=== PATIENT | male | born 1980 | race Hispanic/Latino ===

== ENCOUNTER 2019-12-05 08:44 | Emergency (ER) | payer SELFPAY ==
--- NOTE | ~2019-12-05 | XR_ITS ---
EXAMINATION: XR wrist RT min 3V DATE: 12/05/2019 09:05 INDICATION: Carpal pain at the right wrist post injury with abnormal bending TECHNIQUE: Posteroanterior, ulnar deviation, oblique, and lateral views of the right wrist were obtai cindy. COMPARISON: none FINDINGS: Alignment is normal. Old healed fracture deformity at the second metacarpal diaphysis. No acute fract ure. Joint spaces are normal. Soft tissues are unremarkable. IMPRESSION: 1. No acute osseous abnormality. Reviewed, dictated and finalized at location A.
[2019-12-05 08:50] VITALS: BP 126/65; PULSE 66; RESP 15; TEMP 36.8; O2SAT 99
--- NOTE | 2019-12-05 09:10 | ED.UPPEXIN ---
HPI - Extremity Injury (Upper) General Chief Complaint: Extremity Injury, Upper Stated Complaint: hand injury Time Seen by Provider: 12/05/19 09:04 History of Present Illness HPI narrative: Patient presents for right wrist pain. In August he caught a door falling out of a dumpster with his right hand, causing it to hyperextend. It hurt in the wrist done but he thought it would get better. 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 He has no pain now. He is right-handed. He has no chronic medical problems. His had no surgeries. He does not smoke. He does drink alcohol and smoke marijuana. He has no prescription medicine. complaint: injury to: right Onset (ago): month(s) Other Extremity Injury: Right: wrist Other injuries: none Handedness: right Place: work Severity: moderate Exacerbating factors: other (Extension at the wrist.) Context: other (Hyperextension at work.) Related Data Home Medications Medication Instructions Recorded Confirmed No Home Medications 12/05/19 12/05/19 Allergies Allergy/AdvReac Type Severity Reaction Status Date / Time No Known Allergies Allergy Unverified 12/05/19 08:54 Review of Systems Review of Systems: Narrative: CONSTITUTIONAL: Denies fever, chills, or sweats. EYES: Denies visual changes, redness, or discharge. ENT: Denies rhinorrhea, congestion, sore throat, or otalgia. CARDIOVASCULAR: Denies chest pain, palpitations, or edema. RESPIRATORY: Denies cough or dyspnea. GASTROINTESTINAL: Denies abdominal pain, nausea, vomiting, or diarrhea. GENITOURINARY: Denies dysuria or hematuria. SKIN: Denies rash or itching. MUSCULOSKELETAL: Denies back pain, or myalgia. He only complains of the right wrist pain. NEUROLOGIC: Denies headache, numbness, or weakness. PSYCHIATRIC: Denies anxiety or depression. FOR[facility]LY [facility] Surgical History Surgical History (Updated 12/05/19 @ 09:13 by Jannet Tee MD) No pertinent past surgical history Social History Social History (Updated 12/05/19 @ 09:13 by Jannet Tee MD) Smoking status: Never smoker Alcohol intake: current Substance use: current Substance use type: marijuana Gender identity (if verbalized by the patient): Male Exam Narrative: Exam Narrative: GENERAL: Well-appearing, well-nourished, and in no acute distress. HEAD: Normocephalic, atraumatic. EYES: PERRLA and EOMI. ENT: Nares clear, no rhinorrhea or epistaxis. Mucous membranes moist. NECK: Supple. CHEST: Clear to auscultation. No respiratory distress. HEART: Regular rate and rhythm. No murmur heard. Normal peripheral pulses. ABDOMEN: Soft, nontender, nondistended, normal active bowel sounds. EXTREMITIES: Slight crepitance at the right wrist with extension. no edema. SKIN: Warm, dry, no rash. NEURO: No focal deficits. Alert and oriented x3. PSYCH: Normal mood and affect. Course Reevaluation(s) Reevaluation #1: Went in to tell the patient that he had broken his wrist with the initial injury, and that it has healed on the x-ray. I offered an appointment with either orthopedics or plastic surgery to see if there is something they can do to help with the pain. He accepts. He does not think he needs an Cristian bandage. Date: 12/05/19 Time: 10:07 Vital Signs Vital signs: Vital Signs Temperature 98.2 F 12/05/19 08:50 Pulse Rate 66 12/05/19 08:50 Respiratory Rate 15 12/05/19 08:50 Blood Pressure 126/65 12/05/19 08:50 Pulse Oximetry 99 12/05/19 08:50 Temperature 98.2 F 12/05/19 08:50 Pulse Rate 66 12/05/19 08:50 Respiratory Rate 15 12/05/19 08:50 Blood Pressure 126/65 12/05/19 08:50 Pulse Oximetry 99 12/05/19 08:50 MDM - Extremity Injury (Upper) Differential Diagnosis Differential diagnosis: Likely sprain and strain of wrist and fracture of wrist Medical Records Attestation: I reviewed the patient's medical records. Discharge Plan Discha
[2019-12-05 10:15] VITALS: BP 116/57; PULSE 78; RESP 16; O2SAT 100
== END 2019-12-05 10:15 | disposition home or self-care (01) ==
PROVIDERS: Emergency Provider Emergency Medicine
DX: S63.501A Unspecified sprain of right wrist, initial encounter (principal); X50.9XXA Other and unspecified overexertion or strenuous movements or postures, initial encounter
CPT/HCPCS: 73110; 99283

== ENCOUNTER 2020-08-31 08:42 | Emergency (ER) | payer SELFPAY ==
--- NOTE | ~2020-08-31 | CT_ITS ---
EXAMINATION: CT abdomen pelvis wo/w con EXAM DATE: 08/31/2020 11:41 INDICATION: Hematuria. TECHNIQUE: Spiral CT of the abdomen and pelvis was performed without contrast. The patient was then injected with small bolus intravenous Omnipaque 350, followed by delay of approximately 10 minutes to allow collecting system to opacify. A post contrast scan abdomen and pelvis was performed during inj ection of remaining contrast. A total of 130 cc intravenous contrast was administered. The dose-nolan th product (DLP) for this examination was 496.88 mGy-cm. The exposure was tailored according to yeny ent size (auto mA exposure control), and iterative reconstruction (ASIR) was used as additional dose reduction technique. Comparison is made to prior examination from 03/01/2019. FINDINGS: There is a 2 mm right mid calyceal stone. Several other punctate right calyceal stones like ly. No ureteral stones or hydronephrosis. The kidneys enhance symmetrically. There are no suspiciou s renal lesions. The calyces and opacified portions of ureters are unremarkable, without filling def ects or focal suspicious strictures. The bladder is unremarkable. The prostate is unremarkable. The liver, spleen, adrenal glands and pancreas are unremarkable. Gallbladder adenomyomatosis. No jacquie cified cholelithiasis. There is no retroperitoneal or pelvic lymphadenopathy. The appendix is normal. The stomach and small bowel are unremarkable. Mild chronic prominence, thick ening of the sigmoid colonic wall for approximately 15 cm segment, could be from underdistention. Ashtyn nocarcinoma is typically much more focal. There is expected amount of colonic stool. No free intrap eritoneal gas. The heart is normal in size. There are no pericardial or pleural effusions. The nadeem ng bases are unremarkable. The bones are unremarkable. IMPRESSION: 1. Punctate right nephrolithiasis. 2. Mild chronic prominence, thickening of the sigmoid colonic wall, most likely be from underdistenti on. Adenocarcinoma is typically much more focal. Reviewed, dictated and finalized at location A. FIC DIRECTOR IMPRESSION: 1. Punctate right nephrolithiasis. 2. Mild chronic prominence, thickening of the sigmoid colonic wall, most likely be from underdistention. Adenocarcinoma is typically much more focal.
[2020-08-31 09:07] VITALS: BP 122/76; PULSE 78; RESP 16; TEMP 36.7; O2SAT 98
[2020-08-31 09:40] LABS: Add Urine Microscopic? YES; Appearance Urine Cloudy (Clear); Bilirubin Urine Negative (Negative); Blood Urine 3+ (Negative); Color Urine Straw (Yellow); Glucose Urine UA Negative (Negative); Ketones Urine Negative (Negative); Leukocyte Esterase Ur Negative LEU/UL (Negative); Mucus Urine Rare /lpf; Nitrate Urine Negative (Negative); Protein Urine 1+ mg/dL (Negative); RBC Urine >75 /hpf (0-2); Urobilinogen Urine Negative mg/dL (<2.0)
--- NOTE | 2020-08-31 10:30 | ED.MALEGU ---
HPI - Male Genitourinary General Chief complaint: Urogenital-Male Stated complaint: blood in urine Time Seen by Provider: 08/31/20 08:57 Source: patient Mode of arrival: ambulatory Limitations: no limitations History of Present Illness HPI Narrative: 40-year-old male Reports no past medical history 1 day history of noticing blood in his urine He does not have any pain and has no dysuria No history of any traumatic injury No prior history of any urinary issues no kidney stones Denies fever back pain dysuria nausea etc. Related Data Allergies Allergy/AdvReac Type Severity Reaction Status Date / Time No Known Allergies Allergy Verified 08/31/20 09:12 Review of Systems Review of Systems: All systems reviewed & are unremarkable except as noted in HPI and below Constitutional: Constitutional: Denies fever(s) and Denies headache(s) ENT: Denies headache(s) Cardiovascular: Cardiovascular: Denies leg edema, Denies palpitations and Denies dyspnea Gastrointestinal: Gastrointestinal: Denies abdominal pain, Denies constipation, Denies diarrhea, Denies nausea and Denies vomiting Genitourinary: Genitourinary: Reports as per HPI, Reports hematuria, Denies oliguria, Denies dysuria and Denies urinary frequency Musculoskeletal: Musculoskeletal: Denies back pain, Denies deformity, Denies muscle weakness and Denies numbness Integumentary/Breasts: Skin/Breast: Denies rash and Denies wounds Psychiatric: Psychiatric: Reports no additional psychiatric complaints Endocrine: Endocrine: Denies palpitations PMFSH Surgical History Surgical History No pertinent past surgical history Social History Social History Smoking status: Never smoker Alcohol intake: current Substance use: current Substance use type: marijuana Gender identity (if verbalized by the patient): Male Exam Const: General: no acute distress, well developed, alert and awake Nutritional Appearance: well nourished Orientation/consciousness: patient oriented x3 (alert) Limitations: no limitations HENMT: Head: normal to inspection, normocephalic and atraumatic Ears: external ears normal General nose exam: No nasal discharge present Face and sinus: face symmetric Eyes: Conjunctivae: conjunctivae normal Sclera: sclerae normal EOM: EOMs intact bilaterally Neck: Neck: normal visual inspection, supple and no JVD Chest: Chest palpation & inspection: deferred Resp: Effort & Inspection: normal respiratory effort and not labored Auscultation: other (BS =) Cardio: Heart sounds: no gallops GI: Inspection: normal to inspection GI Palp: Yes Soft to palpation, No Tenderness to palpation present (GI), No Guarding due to palpation present (GI) and No Rebound tenderness present : General: Yes no CVA tenderness Back/Spine/Pelvis: Thoracic/Lumbar Spine: thoracic and lumbar spine normal to inspection Skin: General skin exam: normal color and no rashes or lesions noted Neuro: General: patient oriented x3 (alert) and moves all extremities Cranial nerves: Yes facial symmetry Speech: normal speech Extrem: General: full ROM Psych: Affect: normal affect Course Course Emergency Course: Discussed with Dr. Doe, will get a CT urogram, and then he can follow-up in the office Vital Signs Vital signs: Vital Signs Temperature 36.7 C 08/31/20 09:07 Pulse Rate 78 08/31/20 09:07 Respiratory Rate 16 08/31/20 09:07 Blood Pressure 122/76 08/31/20 09:07 Pulse Oximetry 98 08/31/20 09:07 Temperature 36.7 C 08/31/20 09:07 Pulse Rate 78 08/31/20 09:07 Respiratory Rate 16 08/31/20 09:07 Blood Pressure 122/76 08/31/20 09:07 Pulse Oximetry 98 08/31/20 09:07 MDM - Male Genitourinary Lab Data Result diagrams: 08/31/20 11:21 Labs: Lab Results 08/31/20 08/31/20 Range/Units 09:14 11:21 Creatinin
[2020-08-31 11:22] LABS: Estimated CRCL calculation 99 ml/min; Estimated Glomerular Filt Rate > 60
[2020-08-31 12:22] VITALS: BP 123/75; PULSE 69; RESP 16; O2SAT 98
== END 2020-08-31 12:21 | disposition home or self-care (01) ==
PROVIDERS: Emergency Provider Emergency Medicine
DX: R31.9 Hematuria, unspecified (principal); N20.0 Calculus of kidney; R93.3 Abnormal findings on diagnostic imaging of other parts of digestive tract
CPT/HCPCS: 74178; 81001; 87086; 99284; Q9967

== ENCOUNTER 2020-09-22 21:01 | Emergency (ER) | payer SELFPAY ==
--- NOTE | ~2020-09-22 | XR_ITS ---
EXAMINATION: XR hand RT min 3V DATE: 09/22/2020 21:59 INDICATION: Right hand injury. TECHNIQUE: 5 views of right hand were obtained. COMPARISON: Right wrist radiographs 12/05/2019 FINDINGS: There is old healed fracture of diaphysis of second metacarpal. There is an oblique fractur e of midshaft of fifth metacarpal. The distal fracture fragment demonstrates 44 degrees palmar angula tion. Joint spaces are normal. IMPRESSION: 1. Oblique fracture of diaphysis of fifth metacarpal. Reviewed, dictated and finalized at location A.
[2020-09-22 21:24] VITALS: BP 119/78; PULSE 71; RESP 16; TEMP 36.6; O2SAT 98
[2020-09-23 00:12] VITALS: BP 128/74; PULSE 72; RESP 16; TEMP 37; O2SAT 95
--- NOTE | 2020-09-23 00:13 | ED.UPPEXIN ---
HPI - Extremity Injury (Upper) General Chief Complaint: Extremity Injury, Upper Stated Complaint: right hand injury Time Seen by Provider: 09/23/20 00:10 Source: patient Mode of arrival: ambulatory Limitations: no limitations History of Present Illness HPI narrative: 40-year-old with no major medical problems here with complaints of injury to the right hand. Patient states that accidentally the downstairs leg fell on his hand at work this afternoon. Complains of swelling and pain. MD complaint: injury to: right and hand Other Extremity Injury: Right: hand Other injuries: none Handedness: right Place: work Severity: moderate Relieving factors: cold therapy and immobilization Context: direct blow Related Data Allergies Allergy/AdvReac Type Severity Reaction Status Date / Time No Known Allergies Allergy Verified 09/22/20 21:02 Review of Systems Review of Systems: All systems reviewed & are unremarkable except as noted in HPI and below Constitutional: Constitutional: Reports no additional constitutional complaints Eyes: Eyes: Reports no additional eye complaints ENT: Reports system reviewed and no additional complaints, except as documented Cardiovascular: Cardiovascular: Reports no additional cardiovascular complaints Respiratory: Respiratory: Reports no additional respiratory complaints Musculoskeletal: Musculoskeletal: Reports as per HPI [facility] Surgical History Surgical History No pertinent past surgical history Social History Social History Smoking status: Never smoker Alcohol intake: current Substance use: current Substance use type: marijuana Gender identity (if verbalized by the patient): Male Exam Narrative: Exam Narrative: GENERAL: Well-appearing, well-nourished, and in no acute distress. HEAD: Normocephalic, atraumatic. EYES: PERRLA and EOMI. NECK: Supple. CHEST: Clear to auscultation. No respiratory distress. HEART: Regular rate and rhythm. No murmur heard. Normal peripheral pulses. EXTREMITIES: Normal range of motion. Moderate STS of dorsum of the right hand and few abrasions. SKIN: Warm, dry, no rash. NEURO: No focal deficits. Alert and oriented x3. PSYCH: Normal mood and affect. Course Course Emergency Course: Inform patient about his x-ray findings will apply splint, advised him to follow-up with orthopedic or hand and plastic surgeon. Vital Signs Vital signs: Vital Signs Temperature 36.6 C 03/29/21 21:24 Pulse Rate 71 09/22/20 21:24 Respiratory Rate 16 09/22/20 21:24 Blood Pressure 119/78 09/22/20 21:24 Pulse Oximetry 98 09/22/20 21:24 Temperature 36.6 C 09/22/20 21:24 Pulse Rate 71 09/22/20 21:24 Respiratory Rate 16 09/22/20 21:24 Blood Pressure 119/78 09/22/20 21:24 Pulse Oximetry 98 09/22/20 21:24 MDM - Extremity Injury (Upper) Imaging Data Radiologist's impression: ITS Impressions Hand X-Ray 09/22/20 22:00 IMPRESSION: 1. Oblique fracture of diaphysis of fifth metacarpal. Discharge Plan Discharge Clinical Impression: Fracture, metacarpal shaft Patient Disposition: Home, Self-Care Condition: Stable Instructions: Antibiotic Form, Hand Fracture (ED) Additional Instructions: Keep your hand elevated take pain medication as needed Prescriptions: New tramadol 50 mg tablet 50 mg PO Q6H PRN (Reason: pain) Qty: 20 RF: 0 No Action ciprofloxacin HCl [Cipro] 250 mg tablet 250 mg PO Q12H Qty: 14 RF: 0 Follow-up/Referrals: PHYSICIAN,FINAL INSPECTOR PAPER [Primary Care Provider] - Time of Disposition: 00:21
--- NOTE | 2020-10-03 05:06 | PC.NURSE ---
LATE ENTRY This note is being entered to document information to the patient's record. The following information was omitted on [09/22/20], VO short arm splint to be applied to the right arm, Splint applied positive distal pulses by [Alli NGUYEN].
== END 2020-09-23 00:39 | disposition home or self-care (01) ==
PROVIDERS: Emergency Provider Family Medicine
DX: S62.326A Displaced fracture of shaft of fifth metacarpal bone, right hand, initial encounter for closed fracture (principal); W20.8XXA Other cause of strike by thrown, projected or falling object, initial encounter
CPT/HCPCS: 29125; 73130; 99284

== ENCOUNTER → 2020-09-29 00:17 | Outpatient (CLI) | payer SELFPAY ==
[2020-09-29 19:29] LABS: SARS-CoV-2 RNA PCR Negative
== END ==
PROVIDERS: Visit Provider Plastic Surgery
DX: Z01.812 Encounter for preprocedural laboratory examination (principal); Z20.822 Contact with and (suspected) exposure to COVID-19
CPT/HCPCS: C9803; U0003; U0005

== ENCOUNTER 2020-10-02 01:54 | Day surgery (SDC) | payer OTHER, SELFPAY ==
[2020-09-23 14:53] VITALS: BMI 22.6
[2020-10-02] VITALS (8 sets, daily range): BP systolic 113–135; BP diastolic 68–89; PULSE 51–60; RESP 14–16; TEMP 37.3; O2SAT 99–100
--- NOTE | ~2020-10-02 | XR_ITS ---
EXAMINATION: XR surgery orthopedic DATE: 10/02/2020 12:42 INDICATION: Reduction and fixation of a right fifth metacarpal fracture. TECHNIQUE: 3 fluoroscopic images of the right hand were obtained during procedure performed by Dr. Knapp. Radiologist was not present for the imaging or procedure. The amount of fluoroscopy time used du ring this procedure was 0.7 minutes. COMPARISON: 09/22/2020 FINDINGS: Interval reduction and likely percutaneously placed wire fixation spanning an oblique mid diaphyseal fracture of the right fifth metacarpal which is now in near-anatomic alignment with only one cortical width palmar/radial displacement and negligible residual palmar angulation. Additional old healed fr acture deformity at the second metacarpal diaphysis. No other fractures identified. Joint spaces are normal. IMPRESSION: 1. Reduction and wire fixation of a mid diaphyseal fracture of the right fifth metacarpal which is no w in near-anatomic limited. See procedure note for further detail. Reviewed, dictated and finalized at location B. IMPRESSION: 1. Reduction and wire fixation of a mid diaphyseal fracture of the right fifth metacarpal which is now in near-anatomic limited. See procedure note for furthe r detail.
--- NOTE | 2020-10-02 07:21 | WPDHPUPDATE1 ---
History and Physical Update Update Date/Time: 10/02/20 07:21 History and Physical has been reviewed, including an updated exam of the patient. There are NO changes in the patient's condition. Risks, benefits, and alternatives have been discussed and questions answered. Patient agrees to proceed with procedure.
[2020-10-02] MEDS: LACTATED RINGERS 1,000 ML 30 ML IV CONT (11:31)
--- NOTE | 2020-10-02 11:32 | WPDANESEPPF ---
Anes - Initial Pre Proc Eval Procedure: Operation Date: 10/02/20 12:45 Proposed Procedures p Closed, Possible Open Reduction Of Right Fifth Metacarpal Shaft Fracture With Intramedullary Varinder Fixation - Randy Garcia MD Date/Time: 10/02/20 11:32 Surgeon: Randy Garcia MD Pre Op Diagnosis: Right fifth metacarpal fracture Patient Data Age: 40 Gender: M Height: 5 ft 7 in Weight: 65.7 kg Allergies Allergy/AdvReac Type Severity Reaction Status Date / Time No Known Allergies Allergy Verified 10/02/20 11:04 Home Medications Medication Instructions Recorded Confirmed Type tramadol 50 mg PO Q6H PRN #20 tablet 09/23/20 09/23/20 Rx Patient hx anesthesia problems: none Family hx anesthesia problems: none PMFSH Surgical History Surgical History No pertinent past surgical history Social History Social History Years smoked: 2 Smoking status: Never smoker Tobacco type: cigarettes Smoking end date: 06/27/08 Alcohol intake: current Drinks per week: 3 Substance use: current Substance use type: marijuana Living arrangements: with family Gender identity (if verbalized by the patient): Male Spiritual care concerns: No Anes - Eval Final PreProcedure Day of Procedure 10/02/20 11:32 Patient weight: normal Heart: regular rate and rhythm Lungs: clear to auscultation Airway: Mallampati scale class II Neurological: alert and oriented Last oral intake: >/= 8 hours ASA classification: II Emergent: no Anesthetic plan: proceed Anesthesia type and monitoring: general LMA and standard monitoring Informed Consent: The patient's anesthetic plan and its attendant risks and benefits were discussed with the patient/family/POA. Questions were solicited and answers provided to the satisfaction of the patient/family/POA.
[2020-10-02] MEDS: ceFAZolin 2 GM/D5W 50 ML 2 GM/50 ML BAG IVPB (11:47)
[2020-10-02] MEDS: LIDO 1%/EPINEPHRINE 1:100,000 50 ML VIAL INFILTRATE (12:30)
--- NOTE | 2020-10-02 12:55 | P.OPB_ITS ---
Procedure Note - Brief Procedure Note - Brief Date of procedure: 10/02/20 Pre-op diagnosis: Right fifth metacarpal fracture Post-op diagnosis: same Procedure performed: Closed reduction and internal BioMet fixation device. Anesthesia: GLMA Surgeon: Randy Garcia MD Electronic Systems Technician: Fco Estimated blood loss (mL): 0 Drains: No Packing: No Pathology: none sent Complications: No immediate complications Condition: stable Disposition: PACU
--- NOTE | 2020-10-02 12:57 | PM.PROC ---
Procedure Note - Detailed Date of procedure: 10/02/20 Pre-op diagnosis: Right fifth metacarpal fracture Post-op diagnosis: same Procedure performed: Closed reduction and application of internal Biomet fixation device Description of procedure: The hand was marked in the holding area. The patient was taken to the operating room and placed supine on the operating table. A time-out was held and confirmed. He was given general endotracheal anesthesia. The extremity was prepped and draped in usual fashion. The site for access of the fixation device was identified with FluoroScan. The site was infiltrated with 1% lidocaine with epinephrine the also infiltrated was the fracture site. The tourniquet was inflated to 250 mmHg. The incision was made as indicated at the base of the metacarpal. The introducer was positioned. The fenestration through the cortex and positioning of the 1.6 mm karla was imaged. With fluoroscopic control the intramedullary karla was advanced across the fracture line and into the head of the metacarpal. The closed reduction was carried out as that was performed. Satisfactory reduction was accomplished. The karla was cut and bent and the sleeve applied. It was cut once again and the cap applied and the skin wound closed over the cap with interrupted 5 0 nylon. The small bulky bandage and Cristian wrap were applied. The patient is discharged home with a prescription for hydrocodone 5/325 8. He has tramadol at home already. Anesthesia: GLMA Surgeon: Randy Garcia MD [employer]: [employer] Estimated blood loss (mL): 0 Drains: No Packing: No Pathology: none sent Complications: No immediate complications Condition: stable Disposition: PACU
[2020-10-02] MEDS: oxyCODONE HCL (*CRX) 5 MG TAB IR PO (13:43)
== END 2020-10-02 14:24 | disposition home or self-care (01) ==
PROVIDERS: Visit Provider Plastic Surgery
PROC: (CPT 26615; principal; 2020-10-02 12:45)
DX: S62.326A Displaced fracture of shaft of fifth metacarpal bone, right hand, initial encounter for closed fracture (principal); W20.8XXA Other cause of strike by thrown, projected or falling object, initial encounter; Z87.891 Personal history of nicotine dependence; F12.90 Cannabis use, unspecified, uncomplicated
CPT/HCPCS: 26615; A9270; C1713; J0690; J1100; J2250; J2405; J2704; J3010; J7120

== ENCOUNTER → 2020-11-10 01:00 | Outpatient (CLI) | payer OTHER, SELFPAY ==
[2020-11-10 18:48] LABS: SARS-CoV-2 RNA PCR Negative
== END ==
PROVIDERS: Visit Provider Plastic Surgery
DX: Z01.812 Encounter for preprocedural laboratory examination (principal); Z20.822 Contact with and (suspected) exposure to COVID-19
CPT/HCPCS: C9803; U0003; U0005

== ENCOUNTER 2020-11-13 02:05 | Day surgery (SDC) | payer OTHER, SELFPAY ==
[2020-11-04 12:20] VITALS: BMI 21.1
--- NOTE | 2020-11-12 12:37 | WPDANESEPPF ---
Anes - Initial Pre Proc Eval Procedure: Operation Date: 11/13/20 07:30 Proposed Procedures p Removal Of Internal C-Wire Fixation Of The Right Fifth Metacarpal - Randy Garcia MD Date/Time: 11/12/20 12:37 Surgeon: Randy Garcia MD Pre Op Diagnosis: hx of right 5th metacarpal fx Patient Data Age: 40 Gender: M Height: 1.7 m Weight: 61.25 kg Allergies Allergy/AdvReac Type Severity Reaction Status Date / Time No Known Allergies Allergy Verified 10/02/20 11:04 Home Medications Medication Instructions Recorded Confirmed Type tramadol 50 mg PO Q6H PRN #20 tablet 09/23/20 11/04/20 Rx Patient hx anesthesia problems: none Family hx anesthesia problems: none PMFSH Surgical History Surgical History No pertinent past surgical history Social History Social History Years smoked: 2 Smoking status: Never smoker Tobacco type: cigarettes Smoking end date: 06/27/08 Alcohol intake: current Drinks per week: 3 Substance use: current Substance use type: marijuana Living arrangements: with family Gender identity (if verbalized by the patient): Male Spiritual care concerns: No Anes - Eval Final PreProcedure Day of Procedure 11/12/20 12:37 Patient weight: normal Heart: regular rate and rhythm Lungs: clear to auscultation and normal air movement Airway: Mallampati scale class II Neurological: alert and oriented Last oral intake: >/= 8 hours ASA classification: I Emergent: no Anesthetic plan: proceed Anesthesia type and monitoring: general GIVS and LMA Informed Consent: The patient's anesthetic plan and its attendant risks and benefits were discussed with the patient/family/POA. Questions were solicited and answers provided to the satisfaction of the patient/family/POA.
--- NOTE | ~2020-11-13 | XR_ITS ---
XR surgery orthopedic DATE: 11/13/2020 08:00 INDICATION: Metacarpal C-wire removal TECHNIQUE: 2 spot C-arm images of the fifth metacarpal 41 seconds exposure time 6.0984 cGycm2 Total DAP COMPARISON: 10/02/2020 surgical orthopedic right hand FINDINGS: Interval removal of C-wire from fifth metacarpal bone. There is callus formation bridging t he previously noted midshaft fracture of the fifth metacarpal bone consistent with healing. IMPRESSION: Interval removal of C-wire from fifth metacarpal bone Reviewed, dictated and finalized at [facility]. Reviewed, dictated and finalized at location B.
[2020-11-13] MEDS: LACTATED RINGERS 1,000 ML 30 ML IV CONT (06:35)
[2020-11-13 06:45] VITALS: BP 118/71; PULSE 79; RESP 18; TEMP 36.4; O2SAT 97
--- NOTE | 2020-11-13 07:12 | WPDHPUPDATE1 ---
History and Physical Update Update Date/Time: 11/13/20 07:12 History and Physical has been reviewed, including an updated exam of the patient. There are NO changes in the patient's condition. Risks, benefits, and alternatives have been discussed and questions answered. Patient agrees to proceed with procedure.
--- NOTE | 2020-11-13 07:32 | PM.OP ---
Procedure Note - Brief Procedure Note - Brief Date of procedure: 11/13/20 Pre-op diagnosis: hx of right 5th metacarpal fx Post-op diagnosis: same Procedure performed: Removal of single fixation wire right 5th metacarpal. Anesthesia: MAC Surgeon: Randy Garcia MD Estimated blood loss (mL): 0 Tourniquet time (min): 8 Drains: No Packing: No Pathology: none sent Complications: No immediate complications Condition: stable Disposition: same day
[2020-11-13] MEDS: LIDO 1%/EPINEPHRINE 1:100,000 50 ML VIAL INFILTRATE (07:43)
[2020-11-13 08:02] VITALS: BP 110/67; PULSE 71; RESP 12; O2SAT 95
[2020-11-13 08:30] VITALS: BP 114/65; PULSE 68; RESP 20; O2SAT 97
[2020-11-13 09:00] VITALS: BP 115/71; PULSE 68; RESP 20
[2020-11-13 09:25] VITALS: BP 115/71; PULSE 68; RESP 20
--- NOTE | 2020-11-13 12:26 | P.OP_ITS ---
Procedure Note - Detailed Date of procedure: 11/13/20 Pre-op diagnosis: hx of right 5th metacarpal fx Post-op diagnosis: same Procedure performed: Planned removal of fixation pin right 5th metacarpal Description of procedure: The site was marked in the holding de leon. The patient was taken to the operating room and placed supine on the operating table. A time-out was held and confirmed. The dressing was removed in the extremity was prepped and draped in usual fashion. C-arm images indicated the healing condition of this fracture and the adequate placement of the pin. A large callus had developed over the top of the PIN access point. This was cut away. The sleeve on the pin was removed without difficulty the pin was removed in retrograde fashion. The cap was not located. Images did not reveal its presence and we believe it had ruptured through the skin the past couple of weeks and had been lost. The skin was closed with interrupted 4-0 nylon suture. A simple bandage was applied and the patient was discharged from the operating room stable condition. No prescriptions were sent home patient indicated he still had some Tramadol Anesthesia: MAC Surgeon: Randy Garcia MD Bending Shed Worker: Wound Tourniquet time (min): 12 Drains: No Packing: No Pathology: none sent Complications: No immediate complications Condition: stable Disposition: same day
== END 2020-11-13 09:34 | disposition home or self-care (01) ==
PROVIDERS: Visit Provider Plastic Surgery
PROC: (CPT 20694; principal; 2020-11-13 07:30)
DX: Z47.2 Encounter for removal of internal fixation device (principal); S62.326D Displaced fracture of shaft of fifth metacarpal bone, right hand, subsequent encounter for fracture with routine healing; Z87.891 Personal history of nicotine dependence; F12.90 Cannabis use, unspecified, uncomplicated
CPT/HCPCS: 20680; J2250; J2704; J3010; J7120

== ENCOUNTER 2022-05-30 00:09 | Emergency (ER) | payer SELFPAY ==
--- NOTE | ~2022-05-30 | CT_ITS ---
EXAMINATION: CT abdomen pelvis wo con DATE: 05/30/2022 00:56 INDICATION: Right-sided kidney stone TECHNIQUE: Computed tomography (CT) of the abdomen and pelvis was performed without intravenous contr ast. The dose-length product was 202.98 mGy-cm. Automated exposure control and iterative reconstructi on technique were employed. COMPARISON: CT dated 08/31/2020. FINDINGS: Lung bases are unremarkable. Heart size normal. No significant pleural or pericardial effus ion. Gallbladder is present. The liver, spleen, pancreas, adrenal glands and left kidney are unremark able. There are punctate 2 mm nonobstructing right renal stones. There is a 3 mm right UVJ stone with mild hydronephrosis. No free air or free fluid. Nonobstructive bowel pattern. No significant vascula r lesions. No lymphadenopathy. IMPRESSION: 1. Right UVJ stone measuring 3 mm with mild right hydronephrosis. 2: Right nephrolithiasis. Reviewed, dictated and finalized at location A. 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
[2022-05-30 00:10] VITALS: PULSE 75; RESP 18; TEMP 36.1; O2SAT 99
--- NOTE | 2022-05-30 00:22 | ED.GENADULT ---
HPI - General Adult General Chief complaint: Abdominal Pain Stated complaint: severe abdominal pain Time Seen by Provider: 05/30/22 00:17 History of Present Illness HPI narrative: this is a 42-year-old male presenting to ED with 30 minutes of severe right-sided flank pain. Patient says that the pain starts in the right side radiates down to his right groin. It is sharp and stabbing and comes and goes. He says it is associated with nausea and vomiting. He has no history of kidney stones. He denies any trauma. Denies fever chills or urinary symptoms. Related Data Allergies Allergy/AdvReac Type Severity Reaction Status Date / Time No Known Allergies Allergy Verified 11/13/20 07:22 Review of Systems Review of Systems: CONSTITUTIONAL: Denies night sweats. EYES: No eye pain ENT: Denies rhinorrhea CARDIOVASCULAR: Denies palpitations RESPIRATORY: Denies hemoptysis GASTROINTESTINAL: Denies hematemesis GENITOURINARY: Denies hematuria. SKIN: Denies rash MUSCULOSKELETAL: Denies myalgia. NEUROLOGIC: Denies weakness. PSYCHIATRIC: Denies delusions [facility] Surgical History Surgical History No pertinent past surgical history Social History Social History Years smoked: 2 Smoking status: Never smoker Tobacco type: cigarettes Smoking end date: 06/27/08 Alcohol intake: current Drinks per week: 3 Substance use: current Substance use type: marijuana Gender identity (if verbalized by the patient): Male Spiritual care concerns: No Exam Narrative: APPEARANCE: Patient is rolling around the bed in obvious distress. He is actively vomiting during the interview. Head: atraumatic. EYES: EOMI, NOSE: Atraumatic NECK: Trachea midline RESPIRATORY: No increased rate of breathing CARDIOVASCULAR: RRR, ABDOMINAL: Abdomen is nontender, nondistended with no guarding or rebound. Right CVA tenderness Genital exam: no tenderness swelling or skin changes MUSCULOSKELETAl: No obvious deformities NEURO: Alert. Moving 4/4 extremities SKIN:: Warm, dry. Normal color PSYCHIATRIC: Normal affect Course Vital Signs Vital signs: Vital Signs Temperature 96.9 F L 05/30/22 00:10 Pulse Rate 75 05/30/22 00:10 Respiratory Rate 18 05/30/22 00:10 Pulse Oximetry 99 12/04/22 00:10 Oxygen Delivery Room Air 05/30/22 00:10 Temperature 96.9 F L 05/30/22 00:10 Pulse Rate 75 05/30/22 00:10 Respiratory Rate 18 05/30/22 00:10 Pulse Oximetry 99 05/30/22 00:10 Oxygen Delivery Room Air 05/30/22 00:10 Medical Decision Making MDM Narrative Medical decision making narrative: is a 42-year-old male presenting with right-sided flank pain which is consistent with a kidney stone. He will be given pain medication, lab work, urinalysis and CT been ordered. urinalysis was negative for infection. CT abdomen pelvis showed a 2-3 mm stone at the right UVJ. we were able to control the patient's pain here in the emergency department. He will be discharged with Nahum Silverio and Dominick. This stone is relatively small and expected to pass without intervention. He will be given follow-up with urology in 1 week. Vital Signs Vital Signs: Vital Signs Temperature 96.9 F L 05/30/22 00:10 Pulse Rate 75 05/30/22 00:10 Respiratory Rate 18 05/30/22 00:10 Pulse Oximetry 99 05/30/22 00:10 Oxygen Delivery Room Air 05/30/22 00:10 Temperature 96.9 F L 05/30/22 00:10 Pulse Rate 75 05/30/22 00:10 Respiratory Rate 18 05/30/22 00:10 Pulse Oximetry 99 05/30/22 00:10 Oxygen Delivery Room Air 05/30/22 00:10 Lab Data 05/30/22 00:37 05/30/22 00:37 Labs: Lab Results 05/30/22 05/30/22 05/30/22 Range/Units 00:37 00:37 00:37 WBC 12.4 H (4.5-10.0) K/mm3 RBC 4.67 (4.6-6.20) M/mm3 Hgb 14.9 (14.0-18.0) g/dL Hct 43.1 (42.0-52.0) %
[2022-05-30] MEDS: ONDANSETRON INJ 4 MG/2 ML VIAL IV PUSH (00:38)
[2022-05-30] MEDS: HYDROmorphone HCL INJ (*CRX) 1 MG/ML SYR 0.5 MG IV PUSH (00:38)
[2022-05-30] MEDS: SODIUM CHLORIDE 0.9% IV 1,000 ML 999 ML IV CONT (00:39)
[2022-05-30] MEDS: KETOROLAC 15 MG/ML VIAL (*BKC) IV PUSH (00:41)
[2022-05-30 00:44] LABS: Basophils Absolute Auto 0.1 K/mm3 (0.0-0.1); Basophils Percent Auto 0.6 % (0.2-1.2); Eosinophils Absolute Auto 0.5 K/mm3 (0-0.3); Eosinophils Percent Auto 3.7 % (0-4.4); Hematocrit 43.1 % (42.0-52.0); Hemoglobin 14.9 g/dL (14.0-18.0); Immature Granulocyte Absolute 0.04 K/mm3 (0.00-0.031); Immature Granulocyte Percent A 0.3 % (0-0.5); Lymphocytes Absolute Auto 5.67 K/mm3 (0.9-3.2); Lymphocytes Percent Auto 45.7 % (18.3-44.2); Mean Corpuscular HGB Conc 34.6 g/dl (32-36); Mean Corpuscular Hemoglobin 31.9 pg (26-34); Mean Corpuscular Volume 92.3 fl (80-100); Mean Platelet Volume 10.3 fl (7.4-10.4); Monocytes Absolute Auto 0.8 K/mm3 (0.1-0.6); Monocytes Percent Auto 6.3 % (2.6-8.5); Neutrophils Absolute Auto 5.4 K/mm3 (1.3-6.7); Neutrophils Percent Auto 43.4 % (45.5-73.1); Platelet Count Result 319 k/mm3 (150-375); Red Blood Count 4.67 M/mm3 (4.6-6.20); Red Cell Distribution Width 12.1 % (11.5-14.5); White Blood Count 12.4 K/mm3 (4.5-10.0)
[2022-05-30 00:53] LABS: Prothrombin Time 12.2 Seconds (11.1-14.7)
[2022-05-30 00:54] LABS: Partial Thromboplastin Time 24.6 SECONDS (22.3-36.8)
[2022-05-30 00:55] LABS: Anion Gap 8 mmol/L (8-16); Blood Urea Nitrogen 15 mg/dL (9-20); Calcium 8.7 mg/dL (8.4-10.2); Carbon Dioxide 28 mmol/L (22-30); Chloride 105 mmol/L (98-107); Estimated CRCL calculation 70 ml/min; Estimated Glomerular Filt Rate > 60; Glucose 104 mg/dL (65-110); Potassium 3.8 mmol/L (3.4-5.0); Sodium 141 mmol/L (137-145)
[2022-05-30] MEDS: HALOPERIDOL LACTATE 5 MG/ML VIAL IV PUSH (01:12)
[2022-05-30 01:16] LABS: Platelet Estimate Adequate (Adequate)
[2022-05-30 01:17] LABS: Atypical Lymphocytes Present; Schistocytes None Seen (NORMAL)
[2022-05-30 02:25] LABS: Add Urine Microscopic? NO; Appearance Urine Clear (Clear); Bilirubin Urine Negative (Negative); Blood Urine Negative (Negative); Color Urine Yellow (Yellow); Glucose Urine UA Negative (Negative); Ketones Urine Negative (Negative); Leukocyte Esterase Ur Negative LEU/UL (Negative); Nitrate Urine Negative (Negative); Protein Urine Negative (Negative); Specific Grav Ur 1.025 (1.001-1.035); Urobilinogen Urine 0.2 mg/dL (<2.0); pH Urine 5.5 (5.0-9.0)
== END 2022-05-30 04:18 | disposition home or self-care (01) ==
PROVIDERS: Emergency Provider Emergency Medicine
DX: N13.2 Hydronephrosis with renal and ureteral calculous obstruction (principal); Z87.891 Personal history of nicotine dependence
CPT/HCPCS: 36415; 74176; 80048; 81003; 85025; 85610; 85730; 96361; 96365; 96375; 99284; J0131; J1170; J1630; J1885; J2405; J7030

== ENCOUNTER 2023-02-22 09:54 | Emergency (ER) | payer SELFPAY ==
--- NOTE | ~2023-02-22 | CT_ITS ---
Non-contrast Head CT History: Left facial droop Technique: Axial non-contrast imaging of the brain was performed. Dose reduction technique was used on this scan by utilizing automated exposure control and iterative reconstruction technique. The dose -length product (DLP) was 605.33 mGy-cm. Findings: There is no evidence of intracranial hemorrhage, mass lesion, or acute infarct. Brain par enchyma appears normal. The ventricles and subarachnoid spaces are normal in size. The calvarium ap pears normal. The visualized paranasal sinuses and mastoid air cells are clear. Impression: No significant abnormality seen. Reviewed, dictated and finalized at location . Impression: No significant abnormality seen.
[2023-02-22 10:00] VITALS: BP 125/88; PULSE 75; RESP 16; TEMP 36.6; O2SAT 97
--- NOTE | 2023-02-22 13:52 | ED.NEUROSD ---
HPI - Neuro Symptoms/Deficit General Chief Complaint: Neuro Symptoms/Deficit Stated Complaint: left side face not moving Time Seen by Provider: 02/22/23 13:30 Source: patient and RN notes reviewed Mode of arrival: ambulatory Limitations: no limitations History of Present Illness HPI Narrative: This is a 42 year old male who presents for evaluation of left facial numbness. He states he woke up this morning and he noticed that he was unable to close his left eye and his mouth looked crooked. He denies difficulty swallowing. He denies focal weakness, numbness, tingling, blurred vision or headache. He went to sleep last night feeling fine. Related Data Allergies Allergy/AdvReac Type Severity Reaction Status Date / Time No Known Allergies Allergy Verified 02/22/23 13:31 Review of Systems Constitutional: Constitutional: Denies weakness Cardiovascular: Cardiovascular: Denies syncope, Denies rapid heart rate, Denies irregular heart rhythm, Denies leg edema and Denies dyspnea Respiratory: Respiratory: Denies chest congestion, Denies hemoptysis, Denies excessive phlegm production and Denies dyspnea Gastrointestinal: Gastrointestinal: Denies abdominal pain, Denies hematochezia, Denies diarrhea and Denies vomiting Genitourinary: Genitourinary: Denies hematuria, Denies dysuria, Denies penile discharge and Denies testicular pain Musculoskeletal: Musculoskeletal: Denies joint swelling, Denies loss of height and Denies muscle weakness Neurologic: Denies syncope, Denies focal weakness, Reports seizure-like activity (left face) and Denies weakness PMFSH Surgical History Surgical History No pertinent past surgical history Social History Social History Years smoked: 2 Smoking status: Former smoker Tobacco type: cigarettes Smoking end date: 06/27/08 Alcohol intake: current Drinks per week: 3 Substance use: current Substance use type: marijuana Living arrangements: with family Gender identity (if verbalized by the patient): Male Spiritual care concerns: No Exam Narrative: GENERAL: Well-appearing, well-nourished, and in no acute distress. HEAD: Normocephalic, atraumatic EYES: PERRLA and EOMI, conjunctiva clear without discharge EARS: TM's clear bilaterally without erythema or dullness NOSE: Nares clear, no rhinorrhea or epistaxis THROAT:Mucous membranes moist, Oropharynx normal without erythema, exudate, peritonsillar swelling or fluctuance NECK: Supple, without lymphadenopathy or mass RESPIRATORY: No respiratory distress, Airway patent, Respirations non-labored, Clear to auscultation without rales, rhonchi or wheeze HEART: Regular rate and rhythm. No murmur heard. Normal peripheral pulses. ABDOMEN: Soft, nontender, nondistended, normal active bowel sounds. No masses. No rebound or guarding, No organomegaly. EXTREMITIES: No edema, normal strength with full range of motion. SKIN: Warm, dry, normal color without rash NEURO: Alert and oriented x3. PSYCH: Normal mood and affect. 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 no other neurological deficits. I discussed management with steroids, antiviral, eye care Date: 02/22/23 Time: 13:52 Vital Signs Vital signs: Vital Signs Temperature 97.9 F 02/22/23 10:00
== END 2023-02-22 14:09 | disposition home or self-care (01) ==
LOC: ANHED 14:04
PROVIDERS: Emergency Provider General Practice
DX: G51.0 Bell's palsy (principal); Z87.891 Personal history of nicotine dependence
CPT/HCPCS: 70450; 99284

== ENCOUNTER 2023-12-02 14:08 | Emergency (ER) | payer SELFPAY ==
--- NOTE | ~2023-12-02 | XR_ITS ---
XR knee LT min 4V Ordering provider: Vitor Crawford APRN History: . BUMPED KNEE YESTERDAT, PAIN PROXIMAL LATERAL . Comparison: None. FINDINGS: BONES: No acute fracture or dislocation. JOINT SPACES: Normal. SOFT TISSUES: Normal. IMPRESSION: No acute osseous abnormality left knee. Reviewed, dictated and finalized at location A.
[2023-12-02 14:16] VITALS: BP 124/71; PULSE 81; RESP 17; TEMP 36.9; O2SAT 98
--- NOTE | 2023-12-02 15:07 | ED.LOWEXIN ---
HPI - Extremity Injury (Lower) General Chief Complaint: Extremity Injury, Lower Stated Complaint: left knee pain Time Seen by Provider: 12/02/23 15:10 Focused HPI: Ayush chalwa is a 43-year-old male patient presenting to the emergency room today for complaints of left knee pain. He reports he whacked his knee on something yesterday and noted a protrusion to his left lateral superior knee. States that when he bends his knee he has some discomfort and there the is a piece of bone that pushes and feels as though is going to go through the skin. General: Well-developed, well nourished, in no apparent distress Head: Normocephalic, atraumatic. Cardio: Regular rate and rhythm, s1 and s2 normal, no murmur appreciated. Resp: Clear to auscultation bilaterally, no rhonchi, rales, wheezing or rubs. Musculoskeletal: No deformity, tender to palpation to the top of the left lateral knee joint, feels that when he bends his knee that there is protruding piece about to break the skin, grossly normal range of motion, muscle strength strong and equal, peripheral pulse strong, no edema, no cyanosis, normal gait and station Patient screened in triage and initial orders placed. Additional care and disposition to be based upon diagnostic testing and treatment. Source: patient Mode of arrival: ambulatory Limitations: no limitations Related Data Allergies Allergy/AdvReac Type Severity Reaction Status Date / Time No Known Allergies Allergy Verified 12/02/23 15:02 Review of Systems Review of Systems: Pertinent positives per HPI. Patient denies any fever, chills, rash, headache, visual changes, dizziness, cough, runny nose, sore throat, shortness of breath, chest pain, palpitations, nausea, vomiting, diarrhea, constipation, abdominal pain, or any urinary issues. PMFSH Surgical History Surgical History No pertinent past surgical history Social History Social History Years smoked: 2 Smoking status: Former smoker Tobacco type: cigarettes Smoking end date: 06/27/08 Alcohol intake: current Drinks per week: 3 Substance use: current Substance use type: marijuana Living arrangements: with family Gender identity (if verbalized by the patient): Male Spiritual care concerns: No Comments At the time of my signature, I reviewed and agree with the nursing past medical, surgical, social, and family history. There is no relevant family history pertinent to the patient complaint. Exam Narrative: General: Well-developed, well nourished, in no apparent distress Head: Normocephalic, atraumatic. Cardio: Regular rate and rhythm, s1 and s2 normal, no murmur appreciated. Resp: Clear to auscultation bilaterally, no rhonchi, rales, wheezing or rubs. Musculoskeletal: No deformity, tender to palpation to the top of the left lateral knee joint, feels that when he bends his knee that there is protruding piece about to break the skin, grossly normal range of motion, muscle strength strong and equal, peripheral pulse strong, no edema, no cyanosis, normal gait and station Course Course Emergency Course: Portions of this record may have been created with voice recognition software. Vital Signs Vital signs: Vital Signs Temperature 36.9 C 12/02/23 14:16 Pulse Rate 81 12/02/23 14:16 Respiratory Rate 17 12/02/23 14:16 Blood Pressure 124/71 12/02/23 14:16 Pulse Oximetry 98 12/02/23 14:16 Temperature 36.9 C 12/02/23 14:16 Pulse Rate 81 12/02/23 14:16 Respiratory Rate 17 12/02/23 14:16 Blood Pressure 124/71 12/02/23 14:16 Pulse Oximetry 98 12/02/23 14:16 Vital signs reviewed MDM - Extremity Injury (Lower) MDM Narrative Medical decision making narrative: At the time of visit patient is resting comfortably on the exam table. Patient appears to be nontoxic. Diagnostics: X
== END 2023-12-02 16:17 | disposition home or self-care (01) ==
PROVIDERS: Emergency Provider Emergency Medicine
DX: S80.02XA Contusion of left knee, initial encounter (principal); W22.8XXA Striking against or struck by other objects, initial encounter; Z87.891 Personal history of nicotine dependence; F12.90 Cannabis use, unspecified, uncomplicated
CPT/HCPCS: 73564; 99283

== ENCOUNTER 2024-01-15 21:46 | Emergency (ER) | payer SELFPAY ==
--- NOTE | ~2024-01-15 | XR_ITS ---
EXAMINATION: XR ankle RT min 3V, XR ankle LT min 3V, XR foot LT min 3V, XR foot RT min 3V DATE: 01/15/2024 22:45 INDICATION: Bilateral foot and ankle injury with inability to bear weight. TECHNIQUE: 1. Anteroposterior, mortise and lateral view of the left ankle were obtained. 2. Dorsoplantar, two oblique and lateral views of the left foot were obtained. 3. Anteroposterior, mortise and lateral view of the right ankle were obtained. 4. Dorsoplantar, two oblique and lateral views of the right foot were obtained. COMPARISON: None. FINDINGS: Right foot and ankle: Alignment of the right foot and ankle is normal. No fracture or osteochondral lesion. Joint spaces ar e well maintained. No ankle joint effusion. The soft tissues are unremarkable. Left foot and ankle: There is flattening of Boehler's angle with suggestion of a joint depression type left calcaneal frac ture. Alignment of the left foot and ankle is otherwise normal. No other lesions suspicious for fract ure identified. Joint spaces are well maintained. No ankle joint effusion. Soft tissue swelling about the lateral malleolus IMPRESSION: 1. No osseous abnormality at the right foot or ankle. 2. Suggestion of a joint depression type fracture of the left calcaneus with flattening of Boehler's angle. Recommend CT for further evaluation. Dr. Kendall discussed these findings with Dr. Meraz at 7:50 AM. Reviewed, dictated and finalized at location A. IMPRESSION: 1. No osseous abnormality at the right foot or ankle. 2. Suggestion of a joint depression type fracture of the left calcaneus with fl attening of Boehler's angle. Recommend CT for further evaluation. Dr. Kendall discussed these findings with Dr. Meraz at 7:50 AM. IMPRESSION: 1. No osseous abnormality at the right foot or ankle. 2. Suggestion of a joint depression type fracture of the left calcaneus with fl attening of Boehler's angle. Recommend CT for further evaluation. Dr. Kendall discussed these findings with Dr. Meraz at 7:50 AM. IMPRESSION: 1. No osseous abnormality at the right foot or ankle. 2. Suggestion of a joint depression type fracture of the left calcaneus with fl attening of Boehler's angle. Recommend CT for further evaluation. Dr. Kendall discussed these findings with Dr. Meraz at 7:50 AM.
[2024-01-15 22:04] VITALS: BP 141/79; PULSE 88; RESP 20; TEMP 36.6; O2SAT 98
[2024-01-15 22:42] VITALS: BP 130/93; PULSE 73; RESP 16; O2SAT 98
--- NOTE | 2024-01-15 23:19 | ED.LOWEXIN ---
HPI - Extremity Injury (Lower) General Chief Complaint: Extremity Injury, Lower Stated Complaint: hopped a fence and having bilateral ankle pain Time Seen by Provider: 01/15/24 22:08 Source: patient Mode of arrival: ambulatory Limitations: no limitations History of Present Illness HPI Narrative: Patient presents to the emergency department after a fall today with right foot and left ankle pain. Reports he was climbing a fence. He fell and twisted his left ankle. Reports pain to the right heel as well. Reports he is unable to ambulate due to pain. He did not hit his head or lose consciousness. Denies any other injuries or focal areas of pain. Denies decreased range of motion or numbness. Related Data Home Medications Medication Instructions Recorded Confirmed No Home Medications 01/15/24 01/15/24 Allergies Allergy/AdvReac Type Severity Reaction Status Date / Time No Known Allergies Allergy Verified 01/15/24 22:06 Review of Systems Review of Systems: CONSTITUTIONAL: Denies fever MUSCULOSKELETAL: Reports joint pain, and myalgia. NEUROLOGIC: Denies numbness, or weakness. All systems reviewed & are unremarkable except as noted in HPI and below PMFSH Past Medical History Medical History (Updated 01/16/24 @ 01:13 by Karie Tejeda PA-C) No active medical problems Surgical History Surgical History No pertinent past surgical history Social History Social History Years smoked: 2 Smoking status: Former smoker Tobacco type: cigarettes Smoking end date: 06/27/08 Alcohol intake: current Drinks per week: 3 Substance use: current Substance use type: marijuana Living arrangements: with family Gender identity (if verbalized by the patient): Male Spiritual care concerns: No Exam Narrative: GENERAL: Well-appearing, well-nourished, and in no acute distress. HEAD: Normocephalic, atraumatic. EYES: EOMI. EXTREMITIES: Normal range of motion. No obvious deformity. Normal DP pulses. Normal sensation. Mild edema about the left lateral malleoli SKIN: Warm, dry, no rash. NEURO: No focal deficits. Alert and oriented x3. PSYCH: Normal mood and affect Course Course Emergency Course: Patient updated on workup and agrees with plan of care Vital Signs Vital signs: Vital Signs Temperature 98 F 01/15/24 22:04 Pulse Rate 88 01/15/24 22:04 Respiratory Rate 20 01/15/24 22:04 Blood Pressure 141/79 H 01/15/24 22:04 Pulse Oximetry 98 01/15/24 22:04 Oxygen Delivery Room Air 01/15/24 22:04 Temperature 98 F 01/15/24 22:04 Pulse Rate 67 01/16/24 01:55 Respiratory Rate 18 01/16/24 01:55 Blood Pressure 133/87 01/16/24 01:55 Pulse Oximetry 99 01/16/24 01:55 Oxygen Delivery Room Air 01/15/24 22:04 Procedures Orthopedic Splinting/Casting Injury #1: Splinting/Casting Date: 01/16/24 Side: left Lower Extremity Injury Location: ankle Lower Extremity Immobilizer: Cristian wrap Other Orthopedic Equipment: crutches MDM - Extremity Injury (Lower) MDM Narrative Medical decision making narrative: Patient presents to the emergency department for bilateral foot and ankle pain. Reports trying to climb over a fence. Fell and twisted the left ankle. Reporting contusion to the right foot as well. He is neurovascularly intact. Bilateral foot and ankle x-rays are without acute osseous abnormalities. Patient placed in an Cristian wrap on the left ankle. Given crutches. Instructed on further care of ankle sprain. He is to follow up with primary care provider. He was given warnings to return to the ER Differential Diagnosis Differential diagnosis: Likely ankle sprain and strain, ankle fracture and other (foot fracture, contusion) Imaging Data Radiologist's impression: Left ankle x-ray: No acute osseous abnormalities
[2024-01-15 23:45] VITALS: BP 137/99; PULSE 81; RESP 16; O2SAT 99
[2024-01-16] MEDS: IBUPROFEN 600 MG TABLET PO (00:41)
[2024-01-16 01:55] VITALS: BP 133/87; PULSE 67; RESP 18; O2SAT 99
== END 2024-01-16 02:30 | disposition home or self-care (01) ==
PROVIDERS: Emergency Provider Physician Assistant
DX: S93.402A Sprain of unspecified ligament of left ankle, initial encounter (principal); Z87.891 Personal history of nicotine dependence; W17.89XA Other fall from one level to another, initial encounter
CPT/HCPCS: 29515; 73610; 73630; 73700; 99284; A9270

== ENCOUNTER 2024-01-16 19:09 | Emergency (ER) | payer SELFPAY ==
--- NOTE | ~2024-01-16 | CT_ITS ---
CT OF left foot EXAMINATION: CT foot LT wo con DATE: 01/16/2024 19:36 INDICATION: Possible calcaneal fracture. TECHNIQUE: Computed tomography (CT) of the left foot was performed without intravenous contrast. Auto mated exposure control and iterative reconstruction technique were employed. The dose-length product was 420.83 mGy-cm. COMPARISON: X-ray left foot, 01/15/2024 FINDINGS: Comminuted fracture of the calcaneus with fracture lines extending to the superior cortical margin of the calcaneal tuberosity posteriorly, the posterior facet, the anterior calcaneal process, and the calcaneal cuboid articulation. 3 mm cortical step-off noted on the calcaneal side of the pos terior facet. Flattening of Boehler's angle. No other fracture identified. Apparent oblique lucency i n the first metatarsal is likely related to motion artifact. Soft tissue swelling about the heel. The major flexor and extensor tendons appear to be intact. IMPRESSION: Comminuted, depression type left calcaneal fracture. 3 mm articular step-off at the poste rior facet. Reviewed, dictated and finalized at location K. IMPRESSION: Comminuted, depression type left calcaneal fracture. 3 mm articular step-off at the posterior facet.
[2024-01-16 19:13] VITALS: BP 125/93; PULSE 87; RESP 16; TEMP 36.8; O2SAT 98
--- NOTE | 2024-01-16 20:33 | ED.LOWEXIN ---
HPI - Extremity Injury (Lower) General Chief Complaint: Extremity Injury, Lower Stated Complaint: left heel pain Time Seen by Provider: 01/16/24 19:21 Source: patient Mode of arrival: wheelchair Limitations: no limitations History of Present Illness HPI Narrative: This is a 43 year old male that presents to the ER after radiology over read. Had x-rays of the bilateral feet and ankle after a fall last night that were without acute findings. Radiology over-read today is showing possible calcaneal fracture on the left. Presents for further management. Related Data Home Medications Medication Instructions Recorded Confirmed No Home Medications 01/15/24 01/15/24 Allergies Allergy/AdvReac Type Severity Reaction Status Date / Time No Known Allergies Allergy Verified 01/15/24 22:06 Review of Systems Review of Systems: CONSTITUTIONAL: Denies fever MUSCULOSKELETAL: Reports joint pain, and myalgia. NEUROLOGIC: Denies numbness All systems reviewed & are unremarkable except as noted in HPI and below PMFSH Past Medical History Medical History (Updated 01/16/24 @ 20:35 by Karie Tejeda PA-C) No active medical problems Surgical History Surgical History No pertinent past surgical history Social History Social History Years smoked: 2 Smoking status: Former smoker Tobacco type: cigarettes Smoking end date: 06/27/08 Alcohol intake: current Drinks per week: 3 Substance use: current Substance use type: marijuana Living arrangements: with family Gender identity (if verbalized by the patient): Male Spiritual care concerns: No Exam Narrative: GENERAL: Well-appearing, well-nourished, and in no acute distress. HEAD: Normocephalic, atraumatic. EYES: EOMI. EXTREMITIES: Normal range of motion. Moderate edema about the left foot and ankle. Normal DP pulse. Normal sensation SKIN: Warm, dry, no rash. NEURO: No focal deficits. Alert and oriented x3. PSYCH: Normal mood and affect Course Course Emergency Course: Patient updated on workup and agrees with plan of care Vital Signs Vital signs: Vital Signs Temperature 98.2 F 01/16/24 19:13 Pulse Rate 87 01/16/24 19:13 Respiratory Rate 16 01/16/24 19:13 Blood Pressure 125/93 H 07/22/24 19:13 Pulse Oximetry 98 01/16/24 19:13 Oxygen Delivery Room Air 01/16/24 19:13 Temperature 98.2 F 01/16/24 19:13 Pulse Rate 87 01/16/24 19:13 Respiratory Rate 16 01/16/24 19:13 Blood Pressure 125/93 H 01/16/24 19:13 Pulse Oximetry 98 01/16/24 19:13 Oxygen Delivery Room Air 01/16/24 19:13 Procedures Orthopedic Splinting/Casting Injury #1: Splinting/Casting Date: 01/16/24 Splinting/Casting Time: 20:38 Side: left Lower Extremity Injury Location: foot Lower Extremity Immobilizer: posterior splint Splint: customized in ED OCL: short leg Pre-Procedure Neuro Vascular Exam: normal Post-Procedure Neuro Vascular Exam: normal Other Orthopedic Equipment: crutches MDM - Extremity Injury (Lower) MDM Narrative Medical decision making narrative: Patient presents to the emergency department after a radiology over-read showing a possible calcaneal fracture on the left. CT scan was obtained, this does show a calcaneal fracture. Patient placed in a short-leg posterior. Will be given follow-up with Orthopedics. We did talk about CT scan of the right foot. He declines this at this time. He does feel this foot is just bruised. He denies any back pain or other complaints. Reports he does not want any prescribed pain medication. In agreement with plan of care. He was given warnings to return to the ER Differential Diagnosis Differential diagnosis: Likely ankle sprain and strain, ankle fracture and other (foot fracture) Imaging Data Radiologist'
== END 2024-01-16 20:50 | disposition home or self-care (01) ==
PROVIDERS: Emergency Provider Physician Assistant
DX: S92.012A Displaced fracture of body of left calcaneus, initial encounter for closed fracture (principal); Z87.891 Personal history of nicotine dependence; W19.XXXA Unspecified fall, initial encounter
CPT/HCPCS: 29515; 73700; 99199; 99284

== ENCOUNTER 2025-03-14 15:02 | Emergency (ER) | payer SELFPAY ==
[2025-03-14 15:20] VITALS: BP 133/79; PULSE 76; RESP 16; TEMP 37.2; O2SAT 98
--- NOTE | 2025-03-14 19:16 | PC.NURSE ---
No answer at 1916 for room.
--- NOTE | 2025-03-14 19:27 | PC.NURSE ---
[phone] to call for rooming
--- NOTE | 2025-03-14 19:35 | PC.NURSE ---
NA to calls for rooming at [phone]
== END 2025-03-14 16:00 | disposition left against medical advice (07) ==
LOC: ANHED 20:53
DX: S01.511A Laceration without foreign body of lip, initial encounter (principal)
CPT/HCPCS: 99199